=== PATIENT | female | born 1980 | race Two or more races ===

== ENCOUNTER 2023-06-25 13:52 | Emergency (ER) | payer OTHER ==
[~2023-06-25] VITALS: Ht 160 cm; Wt 52.3 kg
[2023-06-25 14:26] VITALS: TEMP 98.4
[2023-06-25] MEDS ORDERED: PSEU-191 PO (16:37)
[2023-06-25] MEDS ORDERED: ACET-2080 PO (16:37)
[2023-06-25] MEDS ORDERED: IBUP-1554 PO (16:37)
[2023-06-25 17:00] VITALS: BP 117/67; PULSE 94; RESP 18
== END 2023-06-25 17:10 | disposition home or self-care (01) ==
LOC: EMS 13:55
DX: J32.9 Chronic sinusitis, unspecified (principal); K08.89 Other specified disorders of teeth and supporting structures; J30.2 Other seasonal allergic rhinitis; F17.210 Nicotine dependence, cigarettes, uncomplicated; Z93.6 Other artificial openings of urinary tract status; Z88.8 Allergy status to other drugs, medicaments and biological substances
CPT/HCPCS: 99283